=== PATIENT | female | born 1995 | race Caucasian/White ===

== ENCOUNTER 2016-10-15 21:32 | Emergency (ER) | payer OTHER ==
[2016-10-15 21:39] VITALS: RESP 16
--- NOTE | 2016-10-15 21:48 | EDPHY ---
H & P Smoking Status: Never smoked Time Seen by Provider: 10/15/16 21:48 HPI/ROS: CHIEF COMPLAINT: Possible dislocated pinky finger HISTORY OF PRESENT ILLNESS: 21-year-old female arrives via private vehicle complaining of possible dislocation right pinky finger at the PIP joint which is playing volleyball in the ball impacted her finger. Intact skin. PHYSICAL EXAM (Prior to examination, patient consented to physical exam, hands were washed and my usual and customary physical exam procedures followed) 1) GENERAL: Well-developed, well-nourished, alert and oriented. Appears to be in no acute distress. 2) HEAD: Normocephalic 3) HEENT: sclera anicteric 4) LUNGS: Breathing comfortably. 5) SKIN: Intact. 6) MUSCULOSKELETAL: right 5th digit at the PIP joint laterally dislocated 7) NEUROLOGIC: Intact DIFFERENTIAL DIAGNOSIS: in no particular include but limited to fracture, sprain, strain, dislocation (Solitario Posada Becka) Constitutional: Initial Vital Signs Temperature (C) 36.6 C 10/15/16 21:36 Heart Rate 98 10/15/16 21:36 Respiratory Rate 16 10/15/16 21:36 Blood Pressure 129/91 H 10/15/16 21:36 O2 Sat (%) 97 10/15/16 21:36 O2 Delivery Mode Room Air Allergies/Adverse Reactions: No Known Allergies Allergy (Unverified 10/15/16 21:36) Home Medications: Medication Instructions Recorded Tylenol 10/15/16 MDM/Departure - MDM Diagnostics: Right fifthFinger Minimum 2 Views Right History: NSOC: ED Imaging SO, Adult/Peds-finger complaint/pain distal to web space. Findings: Dislocation of the right fifth finger at the PIP joint is present, with the middle phalanx dislocated in an ulnar direction. No fracture identified. Impression: Dislocated right fifth PIP joint. Dictated By: Abisai Guzman MD 8 Right fifthFinger Minimum 2 Views Right History: Dislocation reduction. Findings: There has been interval reduction in a dislocated PIP joint of the right fifth finger. Equivocal linear nondisplaced fracture involves the middle phalanx at the articular surface. Impression: Reduction in PIP joint dislocation, with equivocal minimal nondisplaced fracture of the middle phalanx. Dictated By: Abisai Guzman MD Images reviewed by myself (Solitario Posada) Procedures: Procedure: Dislocation reduction. . The dislocation of the left pinky digit at the PIP joint was reduced using traction counter traction technique without complications. Post reduction the patient's neurovascular exam is normal. Post reduction x-ray demonstrates reduction of the joint to the anatomic position. The procedure was performed by myself. Procedure: Splint A elvin-tape and aluminum finger splint were applied by ER aircraft ordnance technician. After application of the splint I returned and re-examined the patient. The splint was adequately immobilizing the joint and distal to the splint the patient's circulation and sensation were intact. Patient shows no signs of compartment syndrome. Was given orthopedic precautions. (Solitario Posada) ED Course/Re-evaluation: The patient was evaluated and managed by the physician telecom assistant. I have reviewed this chart and I agree with the findings and plan of care as documented , as indicated by my signature. I am the secondary supervising physician. ( Allyson Cantrell) - Depart Disposition: Home, Routine, Self-Care Clinical Impression: Left 5th digit dislocation Condition: Good Instructions: Finger Dislocation (ED) Additional Instructions: Return to the ER immediately if you experience discoloration, have worsening pain, numbness, tingling, or any other symptoms that concern you. If you received x-rays in the emergency department today, be advised, that ligamentous , tendon, muscular, and other non-bony injury cannot be fully ruled out. Try to keep your affected extremity elevated above the level of your chest, and keep cold packs on the affected area, for the next 48 hours. Stand Alone Forms: School Excuse Referrals: Bettina Fatima MD [Medical Doctor] - 5-7 days, call for appt. (Dr Fatima is a hand surgeon)
[2016-10-15 22:58] VITALS: BP 127/88; PULSE 82; TEMP 97.7; O2SAT 96
== END 2016-10-15 23:00 | disposition home or self-care (01) ==
PROC: 0RSWXZZ Reposition Right Finger Phalangeal Joint, External Approach (ICD-10-PCS; principal; 2016-10-15)
DX: S63.286A Dislocation of proximal interphalangeal joint of right little finger, initial encounter (principal); W21.06XA Struck by volleyball, initial encounter; Y93.68 Activity, volleyball (beach) (court)

== ENCOUNTER 2016-11-30 21:54 | Emergency (ER) | payer OTHER ==
[2016-11-30] MEDS ORDERED: NS 2,000 ML IV ONE (21:57)
[2016-11-30] MEDS ORDERED: ONDANSETRON 4 MG/2 ML VIAL ONE (21:57)
[2016-11-30] MEDS ORDERED: ONDANSETRON 4 MG/2 ML VIAL IVP ONE (21:57)
--- NOTE | 2016-11-30 21:58 | EDPHY ---
H & P HPI/ROS: HPI CHIEF COMPLAINT: Nausea, vomiting, mono HISTORY OF PRESENT ILLNESS: This patient very pleasant 21-year-old female, no significant medical history no surgical history presents emergency room by EMS with persistent nausea vomiting today. She was seen [facility] today was diagnosed with mono. She has been ill for 2 weeks. With fatigue. She also tells me she has splenomegaly from mono but no abdominal pain. Denies chest pain, sore throat or productive cough. Does run intermittent fevers. She presents emergency room by EMS for ongoing nausea vomiting unable to tolerate p.o.. Upon arrival here in the emergency room she appears well nontoxic no acute distress. Noted to have a mild elevated temperature 38.2degrees. Slightly tachycardic to 102. Past Medical History: No medical history Past Surgical History: No surgical history Social History: Denies daily use of drugs alcohol tobacco products is a [employer] student Family History: Noncontributory ROS REVIEW OF SYSTEMS: A comprehensive 10 point review of systems is otherwise negative aside from elements mentioned in the history of present illness. Exam Constitutional appears well nontoxic, dehydrated, triage nursing summary reviewed, vital signs reviewed, awake/alert. Eyes normal conjunctivae and sclera, EOMI, PERRLA. HENT normal inspection, atraumatic, dry mucous mebranes, no epistaxis, neck supple/ no meningismus, no raccoon eyes. Respiratory clear to auscultation bilaterally, normal breath sounds, no respiratory distress, no wheezing. Cardiovascular rate normal, regular rhythm, no murmur, no edema, distal pulses normal. Gastrointestinal soft, non-tender, no rebound, no guarding, normal bowel sounds, no distension, no pulsatile mass. Genitourinary no CVA tenderness. Musculoskeletal no midline vertebral tenderness, full range of motion, no calf swelling, no tenderness of extremities, no meningismus, good pulses, neurovascularly intact. Skin pink, warm, & dry, no rash, skin atraumatic. Neurologic awake, alert and oriented x 3, AAOx3, moves all 4 extremities equally, motor intact, sensory intact, CN II-XII intact, normal cerebellar, normal vision, normal speech. Psychiatric normal mood/affect. Heme/Lymph/Immune no lymphadenopathy. Differential Diagnosis: includes but is not limited to in a particular order dehydration, electrolyte disturbance, mono, acute febrile illness Medical Decision Making: Plan for this patient IV establishment patient be placed on full diagnostic cardiac sonographer she will have IV fluids started IV Zofran for nausea will check basic blood work. Tylenol for fever. And re-evaluate. Re-evaluation: To this patient's LFTs elevated bilirubin and alk-phos I will proceed with an ultrasound of the right upper quadrant she has been vomiting. It is known that mono can cause elevated LFTs however unusual for elevated bilirubin and alk- phos. Ultrasound of the abdomen . The results of the study are negative for acute inflammatory process I discussed the results of this study with the radiologist Dr. Balbir Viramontes 2330: Re-evaluation at this time patient is resting comfortably no vomiting. She p.o. challenge well. Urinalysis pending. I did go over her blood work results and ultrasound. She does have a noted elevated LFTs alk phos and bili however is not jaundiced does not appear sick. It is well known monitoring causing elevated LFTs however a little unusual for alk-phos and bilirubin. I do want her to get these recheck by her primary care doctor she understands. She also understands refrain from drinking alcohol or taking large amounts of Tylenol given her elevated LFTs in the setting mono. No aggressive physical Sports and explain if she develops severe abdominal pain vomiting high fever or feels worse return to the emergency room. No contact sports. She understands. Source: Patient, EMS - Medical/Surgical History Hx Asthma: No Hx Chronic Respiratory Disease: No Hx Diabetes: No Hx Cardiac Disease: No Hx Renal Disease: No Hx Cirrhosis: No Hx Alcoholism: No Hx HIV/AIDS: No Hx Splenectomy or Spleen Trauma: No Other PMH: IUD - Social History Smoking Status: Never smoked Constitutional: Initial Vital Signs Temperature (C) 38.2 C 11/30/16 22:00 Heart Rate 103 H 11/30/16 22:00 Respiratory Rate 16 11/30/16 22:00 Blood Pressure 131/78 H 11/30/16 22:00 O2 Sat (%) 93 11/30/16 22:00 O2 Delivery Mode Room Air Allergies/Adverse Reactions: No Known Allergies Allergy (Unverified 10/15/16 21:36) Home Medications: Medication Instructions Recorded Iud 11/30/16 Ondansetron HCl [Zofran] 4 mg PO Q4-6PRN PRN #10 tablet 11/30/16 Medical Decision Making - Diagnostics Imaging: Imaging Impressions Abdomen Ultrasound 11/30/16 22:29 Impression: Possible mild hepatomegaly versus Angelito's lobe configuration to the liver. Otherwise normal right upper quadrant ultrasound. Results called and discussed with Dony Parker MD at 11/30/2016 23:10. - Data Points Laboratory Results: Laboratory Results 11/30/16 22:00 11/30/16 22:00 11/30/16 11/30/16 11/30/16 22:00 22:00 22:00 WBC RBC Hgb Hct MCV MCH MCHC RDW Plt Count MPV Neut % (Auto) Lymph % (Auto) [place] % (Auto) Eos % (Auto) Baso % (Auto) Nucleat RBC Rel Count Absolute Neuts (auto) Absolute Lymphs (auto) Absolute Monos (auto) Absolute Eos (auto) Absolute Basos (auto) Absolute Nucleated RBC Immature Gran % Seg Neutrophils % Band Neutrophils % Lymphocytes % Monocytes % Eosinophils % Immature Gran # Absolute Seg Neuts Absolute Band Neuts Absolute Lymphocytes Absolute Monocytes Absolute Eosinophils Atypical Lymphocytes Platelet Estimate Echinocytes Smear Review By Sodium 132 mEq/L L mEq/L (134-144) Potassium 3.9 mEq/L mEq/L (3.5-5.2) Chloride 100 mEq/L mEq/L (97-110) Carbon Dioxide 21 mEq/l L mEq/l (22-31) Anion Gap 11 mEq/L mEq/L (8-16) BUN 13 mg/dL mg/dL (7-23) Creatinine 0.8 mg/dL mg/dL (0.6-1.0) Estimated GFR > 60 Glucose 110 mg/dL H mg/dL (70-100) Calcium 9.2 mg/dL mg/dL (8.5-10.4) Total Bilirubin 3.5 mg/dL H mg/dL (0.1-1.4) Conjugated Bilirubin 3.0 mg/dL H mg/dL (0.0-0.5) Unconjugated Bilirubin 0.5 mg/dL mg/dL (0.0-1.1) AST 246 IU/L H IU/L (14-46) ALT 401 IU/L H IU/L (9-52) Alkaline Phosphatase 654 IU/L H IU/L (38-126) Total Protein 7.4 g/dL g/dL (6.3-8.2) Albumin 3.8 g/dL g/dL (3.5-5.0) Lipase 129.0 IU/L IU/L (23-300) Beta HCG, Qual NEGATIVE Monoscreen POSITIVE H (NEGATIVE) 11/30/16 22:00 WBC 8.77 10^3/uL 10^3/uL (3.80-9.50) RBC 5.26 10^6/uL 10^6/uL (4.18-5.33) Hgb 15.5 g/dL g/dL (12.6-16.3) Hct 44.8 % % (38.0-47.0) MCV 85.2 fL fL (81.5-99.8) MCH 29.5 pg pg (27.9-34.1) MCHC 34.6 g/dL g/dL (32.4-36.7) RDW 12.2 % % (11.5-15.2) Plt Count 189 10^3/uL 10^3/uL (150-400) MPV 10.4 fL fL (8.7-11.7) Neut % (Auto) Not Reported Lymph % (Auto) Not Reported [place] % (Auto) Not Reported Eos % (Auto) Not Reported Baso % (Auto) Not Reported Nucleat RBC Rel Count 0.0 % % (0.0-0.2) Absolute Neuts (auto) Not Reported Absolute Lymphs (auto) Not Reported Absolute Monos (auto) Not Reported Absolute Eos (auto) Not Reported Absolute Basos (auto) Not Reported Absolute Nucleated RBC 0.00 10^3/uL 10^3/uL (0-0.01) Immature Gran % Not Reported Seg Neutrophils % 18 % % Band Neutrophils % 4 % % Lymphocytes % 68 % % Monocytes % 9 % % Eosinophils % 1 % % Immature Gran # Not Reported Absolute Seg Neuts 1.58 10^/uL L 10^/uL (1.70-6.50) Absolute Band Neuts 0.35 10^3/uL 10^3/uL (0.00-0.70) Absolute Lymphocytes 5.96 10^3/uL H 10^3/uL (1.00-3.00) Absolute Monocytes 0.79 10^3/uL 10^3/uL (0.30-0.80) Absolute Eosinophils 0.09 10^3/uL 10^3/uL (0.03-0.40) Atypical Lymphocytes 3+ H Platelet Estimate ADEQUATE (ADEQ) Echinocytes 1+ H Smear Review By Pending Sodium Potassium Chloride Carbon Dioxide Anion Gap BUN Creatinine Estimated GFR Glucose Calcium Total Bilirubin Conjugated Bilirubin Unconjugated Bilirubin AST ALT Alkaline Phosphatase Total Protein Albumin Lipase Beta HCG, Qual Monoscreen Medications Given: Discontinued Medications Acetaminophen (Tylenol) 1,000 mg PO EDNOW ONE Stop: 11/30/16 22:01 Last Admin: 11/30/16 22:09 Dose: 1,000 mg Sodium Chloride (Ns) 2,000 mls @ 0 mls/hr IV ONCE ONE PRN Reason: Wide Open Stop: 11/30/16 21:58 Last Admin: 11/30/16 22:07 Dose: 2,000 mls Ondansetron HCl (Zofran) 4 mg IVP EDNOW ONE Stop: 11/30/16 21:58 Last Admin: 11/30/16 22:07 Dose: 4 mg Departure - Departure Disposition: Home, Routine, Self-Care Clinical Impression: Mononucleosis Condition: Good Instructions: Dehydration (ED), Acute Nausea and Vomiting (ED) Additional Instructions: 1. Please return to the emergency room if you have any worsening symptoms questions or concerns. 2. Do not play contact sports, minimize any trauma to her abdomen. 3. you do have elevated LFTs this can be seen with mono. I would like you to get your liver enzymes recheck to her primary care doctor in a few weeks. However he develops worsening abdominal pain, fever, vomiting or you turn yellow return to the emergency room. Referrals: Patient,NotPresent [Unknown] - As per Instructions Prescriptions: Ondansetron HCl [Zofran] 4 mg PO Q4-6PRN PRN #10 tablet PRN Reason: Nausea/Vomiting, Use 1st
[2016-11-30] MEDS ORDERED: ACETAMINOPHEN 500 MG TAB PO ONE (22:00)
[2016-11-30 22:11] LABS: ADD MORPH? NO; ADD SCAN? YES; FRAGMENT RBC FLAG 0 (0-99); HEMATOCRIT 44.8 % (38.0-47.0); HEMOGLOBIN 15.5 g/dL (12.6-16.3); LEFT SHIFT FLG 10 (0-99); LIPEMIA HEMOLYSIS FLAG 90 (0-99); MEAN CELL HEMOGLOBIN 29.5 pg (27.9-34.1); MEAN CELL HEMOGLOBIN CONCENTR. 34.6 g/dL (32.4-36.7); MEAN CELL VOLUME 85.2 fL (81.5-99.8); MEAN PLATELET VOLUME 10.4 fL (8.7-11.7); PLATELET CLUMPS FLAG 20 (0-99); PLATELET COUNT 189 10^3/uL (150-400); RED BLOOD CELL COUNT 5.26 10^6/uL (4.18-5.33); RED CELL DISTRIBUTION WIDTH 12.2 % (11.5-15.2)
[2016-11-30 22:14] LABS: ATYPICAL LYMPHOCYTE FLAG 300 (0-99)
[2016-11-30 22:23] LABS: ALANINE AMINOTRANSFERASE 401 IU/L (9-52); ALBUMIN 3.8 g/dL (3.5-5.0); ALKALINE PHOSPHATASE 654 IU/L (38-126); ANION GAP 11 mEq/L (8-16); ASPARTATE AMINOTRANSFERASE 246 IU/L (14-46); BILIRUBIN,TOTAL 3.5 mg/dL (0.1-1.4); BILIRUBIN-UNCONJUGATED 0.5 mg/dL (0.0-1.1); CALCIUM 9.2 mg/dL (8.5-10.4); CARBON DIOXIDE 21 mEq/l (22-31); CHLORIDE 100 mEq/L (97-110); CREATININE 0.8 mg/dL (0.6-1.0); GLOMERULAR FILTRATION RATE > 60; GLUCOSE 110 mg/dL (70-100); POTASSIUM 3.9 mEq/L (3.5-5.2); SODIUM 132 mEq/L (134-144); TOTAL PROTEIN 7.4 g/dL (6.3-8.2)
[2016-11-30 22:35] LABS: ADD DIFF? YES; SCAN POSITIVE
[2016-11-30 23:01] LABS: ECHINOCYTES 1+; PLATELET ESTIMATE ADEQUATE (ADEQ)
[2016-12-01] LABS: COLOR AMBER; LEUKOCYTE ESTERASE,URINE NEGATIVE (NEGATIVE); NITRITE,URINE NEGATIVE (NEGATIVE)
[2016-12-01 00:03] LABS: MUCUS TRACE /lpf (NONE-1+)
[2016-12-01 01:10] VITALS: BP 101/60; PULSE 65; RESP 16; TEMP 97.5; O2SAT 95
== END 2016-12-01 01:18 | disposition home or self-care (01) ==
LOC: EDUNIT#
DX: B27.90 Infectious mononucleosis, unspecified without complication (principal)
CPT/HCPCS: 96374; J2405

== ENCOUNTER 2017-08-12 20:52 | Emergency (ER) | payer OTHER ==
--- NOTE | 2017-08-12 21:10 | EDPHY ---
H & P Time Seen by Provider: 08/12/17 21:10 - Medical/Surgical History Hx Asthma: No Hx Chronic Respiratory Disease: No Hx Diabetes: No Hx Cardiac Disease: No Hx Renal Disease: No Hx Cirrhosis: No Hx Alcoholism: No Hx HIV/AIDS: No Hx Splenectomy or Spleen Trauma: No Other PMH: IUD - Social History Smoking Status: Never smoked Constitutional: Initial Vital Signs Temperature (C) 39.4 C H 08/12/17 21:10 Heart Rate 118 H 08/12/17 21:10 Respiratory Rate 18 08/12/17 21:10 Blood Pressure 143/95 H 08/12/17 21:10 O2 Sat (%) 95 08/12/17 21:10 O2 Delivery Mode Room Air Allergies/Adverse Reactions: No Known Allergies Allergy (Unverified 08/12/17 21:17) Home Medications: Medication Instructions Recorded Cephalexin [Keflex (RX)] 500 mg PO TID #30 cap 08/12/17 Medical Decision Making ED Course/Re-evaluation: CHIEF COMPLAINT: Fever, sore throat, nausea HISTORY OF PRESENT ILLNESS: The patient is a 21 y/o female arriving with her brother complaining of fever, sore throat, nausea, and vomiting onset yesterday. She had 3 episodes of vomiting yesterday and continues to have nausea today. She says, "I think I have the flu and my fever hit 103.9F" today. She called her brother and he brought her to the ED. No abdominal pain, dyspnea , chest pain, headache, myalgias, rhinorrhea, productive cough. She did not receive a flu vaccination this season. She is normally healthy. REVIEW OF SYSTEMS: A 10 point review of systems was performed and is negative with the exception of the elements mentioned in the history of present illness. PHYSICAL EXAM: HR, BP, O2 Sat, RR. Temp 39.4C General Appearance: Alert, well hydrated, appropriate, and non-toxic appearing. Head: Atraumatic without scalp tenderness or obvious injury Eyes: Pupils equal, round, reactive to light and accommodation, EOMI, no trauma , no injection. Ears: Clear bilaterally, no perforation, normal landmarks Nose: Atraumatic, no rhinorrhea, clear. Throat: Pharyngeal erythema with mild exudates, no lesions, normal tonsils, mucus membranes moist. Neck: Supple, nontender, no lymphadenopathy. Respiratory: No retractions, no distress, no wheezes, and no accessory muscle use. Lungs are clear to auscultation bilaterally. Cardiovascular: Regular rate and rhythm, no murmurs, rubs, or gallops. Good capillary refill all extremities. Gastrointestinal: Abdomen is soft, nontender, non-distended, no masses, no rebound, no guarding, no peritoneal signs. Musculoskeletal: Normal active ROM of all extremities, atraumatic. Neurological: Alert, appropriate, and interactive. The patient has non-focal cranial nerves, motor, sensory, and cerebellar exam. Skin: No rashes, good turgor, no nodules on palpation. Past medical history: Denies Past surgical history: Denies Family history: Noncontributory Social history: Brother at bedside. [employer] student. From [place]. DIFFERENTIAL DIAGNOSIS: The differential diagnosis for the patient's fever included but was not limited to strep pharyngitis, pneumonia, urinary tract infection, viral syndrome, meningitis, and sepsis. MEDICAL DECISION MAKING: This is a well-appearing 21 y/o female who presents with a 1-day history of fever, sore throat, nausea, and vomiting. She has pharyngeal erythema on exam and is febrile here at 39.4C. Her presentation is consistent with strep pharyngitis and will treat empirically. 10mg PO Decadron administered. She will receive scripts for Keflex, Zofran, [place], and standard pharyngitis care and follow up instructions. Return precautions discussed. She is comfortable with plan. Departure - Departure Disposition: Home, Routine, Self-Care Clinical Impression: Pharyngitis Qualifiers: Pharyngitis/tonsillitis etiology: unspecified etiology Qualified Code(s): J02.9 - Acute pharyngitis, unspecified Fever Qualifiers: Fever type: due to other condition Qualified Code(s): R50.81 - Fever presenting with conditions classified elsewhere Nausea & vomiting Qualifiers: Vomiting type: unspecified Vomiting Intractability: non-intractable Qualified Code(s): R11.2 - Nausea with vomiting, unspecified Condition: Good Instructions: Cephalexin (By mouth), Hydrocodone/Acetaminophen (By mouth), Ondansetron (By mouth), Pharyngitis (ED) Additional Instructions: 1. Take Keflex as prescribed. Be sure to complete the entire prescription. 2. Use Zofran as prescribed as needed for nausea and vomiting. 3. Alternate ibuprofen and Tylenol for fever and pain for the next few days. 4. Follow up with your primary care provider for unimproved symptoms over the next week. Adult Pain & Fever Control: We recommend Acetaminophen (Tylenol) and Ibuprofen (Motrin,Advil) for pain and fever control. When fever is high or pain severe, both drugs can be used at the same time, but at different intervals. Please note the time differences. Your dose is: Acetaminophen 650mg every 4 to 6 hours Ibuprofen 600mg every 6-8 hours with food Note: do not take Acetaminophen with Hydrocodone (Vicodin, Lortab) or Oxycodone (Percocet). These medications also contain Acetaminophen. No more than 3000mg of Acetaminophen should be taken in 24 hours (for an adult). Referrals: [facility],. [Clinic] - As per Instructions Prescriptions: Cephalexin [Keflex (RX)] 500 mg PO TID #30 cap Report Scribed for: Simon Gr Report Scribed by: Beckie Ramsey Date of Report: 08/12/17 Time of Report: 21:17
[2017-08-12 21:14] VITALS: BP 143/95; PULSE 118; RESP 18; TEMP 102.9; O2SAT 95
[2017-08-12] MEDS ORDERED: CEPHALEXIN 500 MG CAP PO ONE (21:17)
[2017-08-12] MEDS ORDERED: DEXAMETHASONE 10 MG/ML VIAL PO ONE (21:17)
[2017-08-12] MEDS ORDERED: ONDANSETRON DISINTEGRATING 4 MG TAB PO ONE (21:17)
[2017-08-12] MEDS ORDERED: HYDROCOD/APAP 5/325 PREPACK#6 BTL TAKEHOME ONE (21:17)
[2017-08-12] MEDS ORDERED: DEXAMETHASONE 4 MG TAB ONE (21:30)
[2017-08-12] MEDS ORDERED: ONDANSETRON 4MG PREPACK#2 BTL TAKEHOME ONE ×2 (21:42)
== END 2017-08-12 21:40 | disposition home or self-care (01) ==
DX: J02.9 Acute pharyngitis, unspecified (principal)